=== PATIENT | male | born 1995 | race African-American/Black ===

== ENCOUNTER 2021-06-25 18:21 | Emergency (ER) | payer OTHER, SELFPAY ==
[2021-06-25 18:52] LABS: Absolute Lymphocytes (CBC) 2.6 K/uL (0.7-4.9); Hematocrit 41.1 % (39.6-49.0); Lymphocytes % 48.8 % (15.3-44.8); MPV 7.9 fL (7.6-11.3); RBC Red Blood Cell Count 5.13 M/uL (4.33-5.43)
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
[2021-06-25 22:21] VITALS: TEMP 98.6
[2021-06-25 22:22] VITALS: BP 160/105; O2SAT 100
== END 2021-06-25 20:29 | disposition home or self-care (01) ==
LOC: ER 18:21
DX: S40.012A Contusion of left shoulder, initial encounter (principal); S40.022A Contusion of left upper arm, initial encounter; G89.11 Acute pain due to trauma; V59.50XA Passenger in pick-up truck or van injured in collision with unspecified motor vehicles in traffic accident, initial encounter; I10 Essential (primary) hypertension
CPT/HCPCS: 85025; 80048; 36415; 70450; 72125; 71260; 74177; 99284; Q9967